=== PATIENT | female | born 1990 | race Two or more races ===

== ENCOUNTER 2019-05-16 19:29 | Day surgery (SDC) | payer MEDICAID, OTHER ==
[~2019-05-16] VITALS: Ht 160 cm; Wt 84.4 kg
[2019-05-16 19:35] VITALS: BP 146/92
[2019-05-16 20:21] LABS: ALANINE AMINOTRANSFERASE 43 U/L (12-78); ALBUMIN 3.6 g/dL (3.4-5.0); ANION GAP 6 mmol/L (5-15); CALCIUM 8.7 mg/dL (8.5-10.1); CHLORIDE 107 mmol/L (98-107); CREATININE 0.68 mg/dL (0.55-1.02)
[2019-05-16 20:27] LABS: BASOPHILS # (AUTO) 0.02 x10^3/uL (0-0.1); BASOPHILS % (AUTO) 0 % (0-1); EOSINOPHILS # (AUTO) 0.03 x10^3/uL (0-0.4); EOSINOPHILS % (AUTO) 1 % (1-7); LYMPHOCYTES # (AUTO) 1.63 x10^3/uL (1-3.4); LYMPHOCYTES % (AUTO) 27 % (22-44); MD NO; MEAN CORPUSCULAR HEMOGLOBIN 30.4 pg (27.0-34.8); MEAN CORPUSCULAR HGB CONC 33.2 g/dL (32.4-35.8); MEAN CORPUSCULAR VOLUME 91.8 fL (80-100); MEAN PLATELET VOLUME 7.2 fL (7.4-10.4); MONOCYTES # (AUTO) 0.51 x10^3/uL (0.2-0.8); MONOCYTES % (AUTO) 8 % (2-9); NEUTROPHILS # (AUTO) 3.95 x10^3/uL (1.8-6.8); NEUTROPHILS % (AUTO) 64 % (42-75); PLATELET COUNT 225 x10^3/uL (130-400); RED BLOOD COUNT 4.28 x10^6/uL (3.82-5.3); RED CELL DISTRIBUTION WIDTH 13.4 % (9.6-15.2)
[2019-05-16 20:39] LABS: ALKALINE PHOSPHATASE 56 U/L (45-117); BILIRUBIN,TOTAL 0.3 mg/dL (0.2-1.0); TOTAL PROTEIN 7.2 g/dL (6.4-8.2)
[2019-05-16] MEDS ORDERED: ONDANSETRON 2MG/ML, 2ML ONE (21:15)
[2019-05-16] MEDS ORDERED: MORPHINE SULFATE 4 MG/ML, 1ML ONE (21:16)
[2019-05-16] MEDS ORDERED: BUPIVACAINE/PF 0.25% ONE (21:46)
[2019-05-16] MEDS ORDERED: EPINEPHRINE 1 MG/ML, 1ML ONE (21:46)
[2019-05-16] MEDS ORDERED: FENTANYL PF 100 MCG/2ML ONE (23:32)
[2019-05-16] MEDS ORDERED: OXYcodone 5 MG/5 ML ORAL.SOL UDC ONE (23:33)
[2019-05-16] MEDS ORDERED: HYDROmorphone 1 MG/ML, 1ML VIAL ONE (23:56)
[2019-05-17] MEDS ORDERED: ONDANSETRON 2MG/ML, 2ML IVPush PRN (01:00)
[2019-05-17] MEDS ORDERED: OXYcodone/APAP 5/325MG TABLET PO PRN (01:00)
[2019-05-17] MEDS ORDERED: HYDROmorphone 2 MG/ML, 1ML IV PRN (01:00)
[2019-05-17] MEDS ORDERED: LACTATED RINGERS 1,000 ML IV SCH (01:00)
[2019-05-17] MEDS ORDERED: CEFAZOLIN 1,000 MG ONE (16:00)
[2019-05-17] MEDS ORDERED: PROPOFOL 10 MG/ML, 20ML ONE (16:00)
[2019-05-17] MEDS ORDERED: DEXAMETHASONE 4 MG/ML, 1ML ONE (16:00)
[2019-05-17] MEDS ORDERED: ONDANSETRON 2MG/ML, 2ML ONE (16:00)
[2019-05-17] MEDS ORDERED: ROCURONIUM 10MG/ML,5ML ONE (16:00)
[2019-05-17] MEDS ORDERED: GLYCOPYRROLATE 0.2MG/1ML, 5ML ONE (16:00)
[2019-05-17 17:04] LABS: CULTURE INDICATED? NO; MICROSCOPIC INDICATED
== END 2019-05-17 02:57 | disposition home or self-care (01) ==
LOC: EDSTATUS 20:17 → OUT 23:30 → ED 05-17 02:48 → OUT 05-17 02:57 → ED 05-17 02:57
PROVIDERS: ATTEND Emergency Medicine
DX: O00.102 Left tubal pregnancy without intrauterine pregnancy (principal); N83.292 Other ovarian cyst, left side; K66.1 Hemoperitoneum; N83.8 Other noninflammatory disorders of ovary, fallopian tube and broad ligament; Z88.1 Allergy status to other antibiotic agents; Z98.890 Other specified postprocedural states; Z83.3 Family history of diabetes mellitus
CPT/HCPCS: 36415; 58662; 59151; 76801; 80053; 81001; 84702; 85025; 86901; 88305; 99285; J0171; J0690; J1100; J2405; J2704; J3490; 99291

== ENCOUNTER 2020-03-11 21:02 | Emergency (ER) | payer MEDICAID ==
[~2020-03-11] VITALS: Ht 160 cm; Wt 83.6 kg
--- NOTE | 2020-03-11 21:36 | NUR ---
THIS IS A 30 YO FEMALE COMING IN FOR C/O RLQ ABD PAIN STARTING LAST NIGHT, NO OTHER SYMPTOMS, TENDER TO PALPATION. DENIES N/V/D/C. PAIN IS INTERMITTENT, NO RADIATION. DENIES HEMATURIA/DYSURIAN OR FLANK PAIN. MONITORING IN PLACE, VSS, NADN AT THIS TIME. UA COLLECTED AND SENT. PIV PLACED FOR CT. CALL LIGHT IN REACH
[2020-03-11] MEDS ORDERED: ONDANSETRON 2MG/ML, 2ML ONE (21:45)
[2020-03-11] MEDS ORDERED: MORPHINE SULFATE 4 MG/ML, 1ML ONE (21:45)
--- NOTE | 2020-03-11 21:50 | NUR ---
PATIENT MEDICATED PER EMAR, TOLERATED WELL
[2020-03-11 21:52] LABS: MICROSCOPIC AUTO
[2020-03-11] MEDS ORDERED: ONDANSETRON 2MG/ML, 2ML IVPush ONE (22:00)
[2020-03-11] MEDS ORDERED: MORPHINE SULFATE 4 MG/ML, 1ML IVPush PRN (22:00)
[2020-03-11 22:36] LABS: BASOPHILS # (AUTO) 0.02 x10^3/uL (0-0.1); BASOPHILS % (AUTO) 0 % (0-1); EOSINOPHILS # (AUTO) 0.19 x10^3/uL (0-0.4); EOSINOPHILS % (AUTO) 3 % (1-7); LYMPHOCYTES # (AUTO) 2.69 x10^3/uL (1-3.4); LYMPHOCYTES % (AUTO) 37 % (22-44); MD NO; MEAN CORPUSCULAR HEMOGLOBIN 30.6 pg (27.0-34.8); MEAN CORPUSCULAR HGB CONC 33.1 g/dL (32.4-35.8); MEAN CORPUSCULAR VOLUME 92.4 fL (80-100); MEAN PLATELET VOLUME 7.7 fL (7.4-10.4); MONOCYTES # (AUTO) 0.55 x10^3/uL (0.2-0.8); MONOCYTES % (AUTO) 8 % (2-9); NEUTROPHILS # (AUTO) 3.89 x10^3/uL (1.8-6.8); NEUTROPHILS % (AUTO) 53 % (42-75); PLATELET COUNT 279 x10^3/uL (130-400); RED BLOOD COUNT 4.45 x10^6/uL (3.82-5.3); RED CELL DISTRIBUTION WIDTH 13.1 % (9.6-15.2)
[2020-03-11] MEDS ORDERED: OMNIPAQUE 350 MG/ML, 100ML BOTTLE ONE (22:36)
--- NOTE | 2020-03-11 22:45 | NUR ---
PATIENT BACK FROM CT
[2020-03-11 23:16] LABS: ALANINE AMINOTRANSFERASE 23 U/L (12-78); ALBUMIN 3.5 g/dL (3.4-5.0); ANION GAP 6 mmol/L (5-15); CALCIUM 8.8 mg/dL (8.5-10.1); CHLORIDE 110 mmol/L (98-107)
[2020-03-11 23:25] LABS: ALKALINE PHOSPHATASE 51 U/L (45-117); BILIRUBIN,TOTAL 0.2 mg/dL (0.2-1.0); CREATININE 0.91 mg/dL (0.55-1.02); TOTAL PROTEIN 6.7 g/dL (6.4-8.2)
[2020-03-11 23:29] VITALS: BP 121/83
--- NOTE | 2020-03-11 23:53 | NUR ---
Patient given discharge instructions and they have confirmed that they understand the instructions. Patient ambulatory with steady gait.
== END 2020-03-11 23:54 | disposition home or self-care (01) ==
LOC: ED 21:54
DX: A09 Infectious gastroenteritis and colitis, unspecified (principal)
CPT/HCPCS: 36415; 74177; 80053; 81001; 83690; 85025; 96374; 96375; 99285; J2270; J2405; Q9967

== ENCOUNTER → 2020-10-19 | Outpatient (CLI) | payer BC, MEDICAID, OTHER ==
[~2020-10-19] MED LIST: OMNIPAQUE 300 MG/ML, 10ML VIAL ONE
== END | disposition home or self-care (01) ==
LOC: RAD 14:42
PROVIDERS: ATTEND Obstetrics & Gynecology
DX: N97.1 Female infertility of tubal origin (principal)
CPT/HCPCS: 58340; 74740; Q9967